=== PATIENT | male | born 1965 | race Caucasian/White ===

== ENCOUNTER 2021-09-07 07:20 | Outpatient (CLI) | payer OTHER ==
[~2021-09-07 07:20] MED LIST: KETO10TA2 PO; NEURONTIN300 MG PO; PERCOCET 5/3251 TAB PO; POLY119PG PO; SURFAK240 M1 PO
== END 2021-09-07 07:26 | disposition home or self-care (01) ==
LOC: NUCLEAR 07:20
PROVIDERS: ATTEND Urology
DX: R07.89 Other chest pain (principal)
CPT/HCPCS: 78452; 93017; A9500; J0153